=== PATIENT | female | born 1990 | race African-American/Black ===

== ENCOUNTER 2018-11-12 08:16 | Emergency (ER) | payer MEDICAID ==
[~2018-11-12] VITALS: Ht 167.6 cm; Wt 73.9 kg
[2018-11-12 08:27] VITALS: BP 95/65
[2018-11-12] MEDS: methylPREDNISolone SOD SUCC 125 MG/2 ML VL IM ONE (09:01)
[2018-11-12] MEDS: cefTRIAXone SOD 1,000 MG VL IM ONE (09:01)
== END 2018-11-12 09:14 | disposition home or self-care (01) ==
LOC: ER 08:28
DX: J03.90 Acute tonsillitis, unspecified (principal)
CPT/HCPCS: 96372; 99283; J0696; J2930

== ENCOUNTER 2018-11-21 10:49 | Emergency (ER) | payer MEDICAID ==
[~2018-11-21] VITALS: Ht 167.6 cm; Wt 78.9 kg
[2018-11-21 11:05] VITALS: BP 138/81
[2018-11-21] MEDS ORDERED: methylPREDNISolone SOD SUCC 125 MG/2 ML VL IM ONE (11:30)
[2018-11-21] MEDS ORDERED: cefTRIAXone SOD 1,000 MG VL IM ONE (12:45)
== END 2018-11-21 13:41 | disposition home or self-care (01) ==
LOC: ER 10:49
DX: R22.0 Localized swelling, mass and lump, head (principal); J02.9 Acute pharyngitis, unspecified
CPT/HCPCS: 72125; 96372; 99284; J0696; J2930

== ENCOUNTER 2020-12-25 09:48 | Emergency (ER) | payer MEDICAID, OTHER ==
[~2020-12-25] VITALS: Ht 167.6 cm; Wt 70.3 kg
[2020-12-25 10:38] LABS: Basophils # (auto) 0 10 ^3/uL (0-0.2); Basophils % (auto) 0.5 % (0.0-2.0); Eosinophils # (auto) 0.1 10 ^3/uL (0-0.8); Eosinophils % (auto) 1.8 % (0.0-7.0); Hematocrit 38.3 % (36.0-46.0); Lymphocytes # (auto) 2.4 10 ^3/uL (0.4-5.4); Lymphocytes % (auto) 49.4 % (10.0-50.0); Mean Corpuscular Hemoglobin 27.7 pg (28.0-32.0); Mean Corpuscular Hgb Conc. 33.8 g/dL (32.0-36.0); Mean Corpuscular Volume 81.9 fL (80.0-100.0); Monocytes # (auto) 0.5 10 ^3/uL (0-1.3); Monocytes % (auto) 10.7 % (0.0-12.0); Neutrophils # (auto) 1.8 10 ^3/uL (1.6-8.6); Neutrophils % (auto) 37.6 % (37.0-80.0); Red Blood Cells 4.68 10^6/uL (4.0-5.20); White Blood Cell 4.9 10^3/uL (4.4-10.8)
[2020-12-25 11:00] LABS: Albumin 3.8 g/dL (3.4-5.0); Potassium 3.8 mmol/L (3.5-5.1)
[2020-12-25 11:20] LABS: BUN/Creatinine Ratio 4.5; Bilirubin, Total 0.8 mg/dL (0.2-1.0)
[2020-12-25 11:59] LABS: Urine Bacteria NONE SEEN /hpf (None Seen); Urine Blood 2+ /uL (Negative); Urine Mucus FEW (None Seen); Urine WBC 5 /hpf (0 - 5)
[2020-12-25 13:09] VITALS: BP 111/69
== END 2020-12-25 13:21 | disposition home or self-care (01) ==
LOC: ER 09:48
DX: N39.0 Urinary tract infection, site not specified (principal)
CPT/HCPCS: 36415; 80053; 81001; 84702; 85025